=== PATIENT | male | born 1980 | race Caucasian/White ===

== ENCOUNTER 2017-05-29 08:06 | Emergency (ER) | payer OTHER ==
[2017-05-29 08:12] VITALS: RESP 16
[2017-05-29] MEDS ORDERED: MORPHINE SULFATE/PF 10MG/10ML VL IVP STA ×2 (09:04→11:41)
[2017-05-29] MEDS ORDERED: KETOROLAC 30 MG/ML 1 ML VIAL IVP STA (09:04)
[2017-05-29] MEDS ORDERED: SODIUM CHLORIDE 0.9% 1,000 ML IV STA (09:04)
[2017-05-29] MEDS ORDERED: ONDANSETRON 4 MG/2 ML VIAL IVP STA (09:04)
[2017-05-29 09:22] LABS: Basophils # (A) 0.1 k/uL (0-0.2); Basophils % (A) 1 %; Eosinophils # (A) 0.4 k/uL (0-0.7); Eosinophils % (A) 4 %; HGB 14.7 gm/dL (13.0-17.5); Lymphocytes # (A) 2.3 k/uL (1.0-4.8); Lymphocytes % (A) 24 %; MCHC 34.1 g/dL (31.0-37.0); MCV 87.9 fL (80.0-100.0); Mean Platelet Volume 6.6; Monocytes # (A) 0.5 k/uL (0-1.0); Monocytes % (A) 5 %; Neutrophils # (A) 6.3 k/uL (1.3-7.7); Neutrophils % (A) 65 %; Platelet Count 284 k/uL (150-450); RBC 4.89 m/uL (4.30-5.90); WBC 9.7 k/uL (3.8-10.6)
[2017-05-29 09:38] LABS: ALT 29 U/L (21-72); AST 26 U/L (17-59); Albumin 4.2 g/dL (3.5-5.0); Alkaline Phosphatase 53 U/L (38-126); Amylase 56 U/L (30-110); Anion Gap 10 mmol/L; Blood Urea Nitrogen 12 mg/dL (9-20); Calcium 9.6 mg/dL (8.4-10.2); Carbon Dioxide 28 mmol/L (22-30); Chloride 104 mmol/L (98-107); Glucose 90 mg/dL (74-99); Lipase 84 U/L (23-300); Potassium 4.5 mmol/L (3.5-5.1); Sodium 142 mmol/L (137-145); Total Bilirubin 0.8 mg/dL (0.2-1.3)
--- NOTE | 2017-05-29 09:51 | XR ---
EXAMINATION TYPE: XR KUB DATE OF EXAM: 05/29/2017 9:45 AM CLINICAL HISTORY: Abdominal pain for 5 days. TECHNIQUE: Two Upright KUB images of the abdomen are obtained. COMPARISON: None. FINDINGS: Scattered gas is seen in non-distended stomach and small bowel loops. Gas and fecal materia l is seen in non-distended colon. There is no visceromegaly, pneumoperitoneum, or abnormal calcificat ion appreciated. The lung bases are clear and the osseous structures are intact. Right sided pelvic p hlebolith. IMPRESSION: Overall nonobstructive bowel gas pattern.
[2017-05-29] MEDS ORDERED: MECLIZINE 12.5 MG TAB PO STA (10:04)
[2017-05-29 10:06] LABS: Appearance,Urine Clear (Clear); Bilirubin,Urine Negative (Negative); Blood,Urine Negative (Negative); Color,Urine Yellow; Glucose,Urine (UA) Negative (Negative); Ketones,Urine Negative (Negative); Leukocyte Esterase,Urine Negative (Negative); Mucus,Urine Many /hpf; Nitrite,Urine Negative (Negative); PH, Urine 5.5 (5.0-8.0); Protein,Urine 1+ (Negative); RBC,Urine <1 /hpf (0-5); Specific Gravity,Urine 1.024 (1.001-1.035); Urobilinogen,Urine <2.0 mg/dL (<2.0); WBC,Urine 1 /hpf (0-5)
[2017-05-29] MEDS ORDERED: SODIUM CHLORIDE 0.9% 1,000 ML IV SCH (10:15)
--- NOTE | 2017-05-29 10:34 | US ---
EXAMINATION TYPE: US abd limited kidneys/bladder DATE OF EXAM: 05/29/2017 COMPARISON: NONE CLINICAL HISTORY: Abdominal Pain x5 days. Difficult exam due to patient's pain EXAM MEASUREMENTS: Liver Length: 18.9 cm Gallbladder Wall: 0.2 cm CBD: 0.6 cm Right Kidney: 10.9 x 3.9 x 5.9 cm Left Kidney: 10.5 x 4.5 x 5.5 cm Pancreas: Obscured by bowel gas. Duct visualized measuring 0.27 cm Liver: Enlarged, heterogeneous Gallbladder: wnl CBD: wnl Right Kidney: No hydronephrosis or masses seen Left Kidney: No hydronephrosis or masses seen Bladder: wnl Bilateral Jets Seen Yes Exam suboptimal due to patient being difficult to image due to pain per technologist. Visualized panc reas is within normal limits. Pancreatic duct is visualized but is upper limits of normal in size. Vi sualized liver is slightly heterogeneous in appearance without evidence of worrisome intrahepatic mas s or hepatic ductal dilatation. Gallbladder is slightly distended margins but there are no suspicious mobile intraluminal gallstones. No pericholecystic fluid collection or abnormal gallbladder wall thi ckening is seen. Both kidneys show no hydronephrosis or concerning mass. Bladder shows no suspicious wall thickening or intraluminal mass. IMPRESSION: Slightly suboptimal study without significant finding seen to account for patient's sympt oms.
--- NOTE | 2017-05-29 10:49 | ED ---
Abdominal Pain HPI - General Chief Complaint: Abdominal Pain Stated Complaint: Abdominal pain Time Seen by Provider: 05/29/17 08:22 Source: patient, RN notes reviewed, old records reviewed Mode of arrival: ambulatory Limitations: no limitations - History of Present Illness Initial Comments: This patient is a 36-year-old male present emergency department with one week of right upper quadrant abdominal pain. He reports that he's had the symptoms for the past 4 days to be come worse. No vomiting but feels nauseated. He denies any fever or chills. He reports that he has pain when he takes the deep breath and this is diaphragm present on his lower abdomen. He states that he's had normal urination in bowel habits. He reports no other symptoms at this time including chest pain or shortness of breath. - Related Data Previous Rx's Medication Instructions Recorded Omeprazole [PriLOSEC] 40 mg PO HS #30 capsule. 05/29/17 Allergies Allergy/AdvReac Type Severity Reaction Status Date / Time Penicillins Allergy Anaphylaxis Verified 05/29/17 08:28 Review of Systems ROS Statement: Those systems with pertinent positive or pertinent negative responses have been documented in the HPI. ROS Other: All systems not noted in ROS Statement are negative. Past Medical History Past Medical History: No Reported History History of Any Multi-Drug Resistant Organisms: None Reported Past Surgical History: Appendectomy, Orthopedic Surgery, Tonsillectomy Past Psychological History: Depression Smoking Status: Current every day smoker Past Alcohol Use History: Occasional Past Drug Use History: None Reported General Exam - General Exam Comments Initial Comments: This is a well appearing 36 year old male, no distress Limitations: no limitations General appearance: alert, in no apparent distress Head exam: Present: atraumatic, normocephalic, normal inspection Eye exam: Present: normal appearance, PERRL, EOMI. Absent: scleral icterus, conjunctival injection, periorbital swelling ENT exam: Present: normal exam, mucous membranes moist Neck exam: Present: normal inspection. Absent: tenderness, meningismus, lymphadenopathy Respiratory exam: Present: normal lung sounds bilaterally. Absent: respiratory distress, wheezes, rales, rhonchi, stridor Cardiovascular Exam: Present: regular rate, normal rhythm, normal heart sounds. Absent: systolic murmur, diastolic murmur, rubs, gallop, clicks GI/Abdominal exam: Present: soft, tenderness (RUQ tenderness), normal bowel sounds. Absent: distended, guarding, rebound, rigid Extremities exam: Present: normal inspection, full ROM, normal capillary refill. Absent: tenderness, pedal edema, joint swelling, calf tenderness Back exam: Present: normal inspection Neurological exam: Present: alert, oriented X3, CN II-XII intact Psychiatric exam: Present: normal affect, normal mood Skin exam: Present: warm, dry, intact, normal color. Absent: rash Course Vital Signs 05/29/17 05/29/17 05/29/17 08:08 11:22 12:17 Temperature 98.2 F 98 F 98.7 F Pulse Rate 85 57 L 59 L Respiratory 16 16 16 Rate Blood Pressure 115/71 110/74 117/76 O2 Sat by Pulse 100 99 100 Oximetry 05/29/17 13:25 Temperature Pulse Rate 64 Respiratory 16 Rate Blood Pressure 120/80 O2 Sat by Pulse 100 Oximetry Medical Decision Making - Medical Decision Making This patient is a 36-year-old male present emergency department with one week of right upper quadrant abdominal pain. He reports that he's had the symptoms for the past 4 days to be come worse. No vomiting but feels nauseated. When I saw the patient urine, it was extremely dark. He had some tenderess to epigastric region adn RUQ. HE was also tender on right CVA. PAtient labs were reviewed and normal. UA shows no blood or bilirubin. US preformed of gallbladder , kidneys. No acute process identified. Patient still continued to complain of pain and tenderness, total CK was normal, no signs of rhabdo. Patient CT abdomen and pelvis was preformed and shows evidence of gastritis. Patient will be placed on omeprazole daily and informed of diet changes. Patient advised to follow up with PCP and return parameters discussed. - Lab Data Result diagrams: 05/29/17 09:12 05/29/17 09:12 Lab Results 05/29/17 05/29/17 05/29/17 Range/Units 09:00 09:12 09:12 WBC 9.7 (3.8-10.6) k/uL RBC 4.89 (4.30-5.90) m/uL Hgb 14.7 (13.0-17.5) gm/dL Hct 43.0 (39.0-53.0) % MCV 87.9 (80.0-100.0) fL MCH 30.0 (25.0-35.0) pg MCHC 34.1 (31.0-37.0) g/dL RDW 12.0 (11.5-15.5) % Plt Count 284 (150-450) k/uL Neutrophils % 65 % Lymphocytes % 24 % Monocytes % 5 % Eosinophils % 4 % Basophils % 1 % Neutrophils # 6.3 (1.3-7.7) k/uL Lymphocytes # 2.3 (1.0-4.8) k/uL Monocytes # 0.5 (0-1.0) k/uL Eosinophils # 0.4 (0-0.7) k/uL Basophils # 0.1 (0-0.2) k/uL Sodium 142 (137-145) mmol/L Potassium 4.5 (3.5-5.1) mmol/L Chloride 104 (98-107) mmol/L Carbon Dioxide 28 (22-30) mmol/L Anion Gap 10 mmol/L BUN 12 (9-20) mg/dL Creatinine 0.67 (0.66-1.25) mg/dL Est GFR (CKD-EPI)AfAm >90 (>60 ml/min/1.73 sqM) Est GFR (CKD-EPI)NonAf >90 (>60 ml/min/1.73 sqM) Glucose 90 (74-99) mg/dL Calcium 9.6 (8.4-10.2) mg/dL Total Bilirubin 0.8 (0.2-1.3) mg/dL AST 26 (17-59) U/L ALT 29 (21-72) U/L Alkaline Phosphatase 53 (38-126) U/L Creatine Kinase (55-170) U/L Total Protein 7.0 (6.3-8.2) g/dL Albumin 4.2 (3.5-5.0) g/dL Amylase 56 (30-110) U/L Lipase 84 (23-300) U/L Urine Color Yellow Urine Appearance Clear (Clear) Urine pH 5.5 (5.0-8.0) Ur Specific [place] 1.024 (1.001-1.035) Urine Protein 1+ H (Negative) Urine Glucose (UA) Negative (Negative) Urine Ketones Negative (Negative) Urine Blood Negative (Negative) Urine Nitrite Negative (Negative) Urine Bilirubin Negative (Negative) Urine Urobilinogen <2.0 (<2.0) mg/dL Ur Leukocyte Esterase Negative (Negative) Urine RBC <1 (0-5) /hpf Urine WBC 1 (0-5) /hpf Urine Mucus Many H (None) /hpf 05/29/17 Range/Units 09:12 WBC (3.8-10.6) k/uL RBC (4.30-5.90) m/uL Hgb (13.0-17.5) gm/dL Hct (39.0-53.0) % MCV (80.0-100.0) fL MCH (25.0-35.0) pg MCHC (31.0-37.0) g/dL RDW (11.5-15.5) % Plt Count (150-450) k/uL Neutrophils % % Lymphocytes % % Monocytes % % Eosinophils % % Basophils % % Neutrophils # (1.3-7.7) k/uL Lymphocytes # (1.0-4.8) k/uL Monocytes # (0-1.0) k/uL Eosinophils # (0-0.7) k/uL Basophils # (0-0.2) k/uL Sodium (137-145) mmol/L Potassium (3.5-5.1) mmol/L Chloride (98-107) mmol/L Carbon Dioxide (22-30) mmol/L Anion Gap mmol/L BUN (9-20) mg/dL Creatinine (0.66-1.25) mg/dL Est GFR (CKD-EPI)AfAm (>60 ml/min/1.73 sqM) Est GFR (CKD-EPI)NonAf (>60 ml/min/1.73 sqM) Glucose (74-99) mg/dL Calcium (8.4-10.2) mg/dL Total Bilirubin (0.2-1.3) mg/dL AST (17-59) U/L ALT (21-72) U/L Alkaline Phosphatase (38-126) U/L Creatine Kinase 179 H (55-170) U/L Total Protein (6.3-8.2) g/dL Albumin (3.5-5.0) g/dL Amylase (30-110) U/L Lipase (23-300) U/L Urine Color Urine Appearance (Clear) Urine pH (5.0-8.0) Ur Specific [place] (1.001-1.035) Urine Protein (Negative) Urine Glucose (UA) (Negative) Urine Ketones (Negative) Urine Blood (Negative) Urine Nitrite (Negative) Urine Bilirubin (Negative) Urine Urobilinogen (<2.0) mg/dL Ur Leukocyte Esterase (Negative) Urine RBC (0-5) /hpf Urine WBC (0-5) /hpf Urine Mucus (None) /hpf - Radiology Data Radiology results: report reviewed US gallbladder, renals and bladder shows no acute changes. CT shows mucosal hyperemia and thickening at focal wall at the gastric antrum. Finding suggest focal gastritis or peptic ulcer disease. Small amount of pelvic free food nonspecific but not normal in a male patient. A paddle megaly. Some bony changes at hips can been seen at the setting of the femoral l acetabular impingement syndrome. Disposition Clinical Impression: Acute gastritis Disposition: HOME SELF-CARE Condition: Good Instructions: Gastritis (ED), Diet for Stomach Ulcers and Gastritis (ED) Additional Instructions: Patient is to rest, have a clear liquid diet for the next 2 days. Follow-up with primary care provider. Return to the emergency department if any alarming signs or symptoms occur. Prescriptions: Omeprazole [PriLOSEC] 40 mg PO HS #30 capsule. Referrals: None,Stated [Primary Care Provider] - 1-2 days Sara Olivares MD [STAFF PHYSICIAN] - 1-2 days Time of Disposition: 12:57
[2017-05-29] MEDS ORDERED: RX INFO: IV CONTRAST WAS GIVEN 1 EACH MISC MISCELLANE PRN (11:41)
[2017-05-29 12:18] VITALS: TEMP 98.7
--- NOTE | 2017-05-29 12:39 | CT ---
EXAMINATION TYPE: CT abdomen pelvis w con DATE OF EXAM: 05/29/2017 COMPARISON: NONE HISTORY: 36-year-old male Middle abdominal pain x5 days TECHNIQUE: Contiguous axial scanning of the abdomen and pelvis following administration of 100 ml Omn ipaque 300 IV contrast. Delayed images through the kidneys and coronal/sagittal reconstructions perf ormed. CT DLP: 371.2 mGycm Automated exposure control for dose reduction was used. FINDINGS: The heart is normal size without pericardial effusion. Lung bases clear without pleural effusion. Liver enlarged measuring 20.6 cm craniocaudal. No focal liver lesions seen. Portal venous system is p atent when correlated with the delayed kidney images. Gallbladder, adrenal glands, spleen, and pancreas appear within normal limits. Symmetric uptake and excretion of contrast from both kidneys with an extrarenal pelvis on the left. There is suggestion of mucosal hyperemia and some circumferential wall thickening of the gastric antr um, refer to axial image 32, coronal image 22 and sagittal image 59. No mesenteric or retroperitoneal lymphadenopathy identified. Surgical material at the inferior cecum compatible with prior appendectomy. Scattered mild stool. No pericolonic inflammatory change. Bladder urine distended. Small amount of pelvic free fluid is noted, axial image 67. No dilated small bowel or free air. Bones: Suggestion of CAM deformities at the femoral head neck junctions and some superior acetabular retroversion. Mild degenerative disc disease at L5-S1. No osseous destructive process. IMPRESSION: 1. MUCOSAL HYPEREMIA AND FOCAL WALL THICKENING AT THE GASTRIC ANTRUM. FINDINGS SUGGEST FOCAL GASTRITI S OR PEPTIC ULCER DISEASE. NO EVIDENCE FOR PERFORATION. DIRECT VISUALIZATION CLINICALLY INDICATED. 2. A SMALL AMOUNT OF PELVIC FREE FLUID IS NONSPECIFIC BUT NOT NORMAL IN A MALE PATIENT. 3. HEPATOMEGALY (20.6 CM). 4. SOME BONY CHANGES AT THE HIPS CAN BE SEEN IN THE SETTING OF FEMORAL ACETABULAR IMPINGEMENT SYNDROM E.
[2017-05-29 13:27] VITALS: BP 120/80; PULSE 64
== END 2017-05-29 13:27 | disposition home or self-care (01) ==
LOC: EC 08:06
DX: K29.00 Acute gastritis without bleeding (principal); F17.200 Nicotine dependence, unspecified, uncomplicated; Z90.49 Acquired absence of other specified parts of digestive tract; Z88.0 Allergy status to penicillin
CPT/HCPCS: 36415; 74018; 74177; 76705; 76770; 80053; 81001; 82150; 82550; 83690; 85025; 96361; 96374; 96375; 96376; 99285

== ENCOUNTER 2017-12-21 08:13 | Inpatient (IN) | payer OTHER ==
[2017-12-21] MEDS ORDERED: KETOROLAC 30 MG/ML 1 ML VIAL IVP STA (08:35)
[2017-12-21] MEDS ORDERED: ONDANSETRON 4 MG/2 ML VIAL IVP STA (08:35)
[2017-12-21] MEDS ORDERED: SODIUM CHLORIDE 0.9% 1,000 ML IV STA (08:35)
--- NOTE | 2017-12-21 08:39 | ED ---
Abdominal Pain HPI <Jose Ramon Landry - Last Filed: 12/21/17 09:58> - General Source: patient, RN notes reviewed Mode of arrival: ambulatory Limitations: no limitations <Kendrick Vega - Last Filed: 12/21/17 10:23> - General Chief Complaint: Abdominal Pain Stated Complaint: Abd Pain Time Seen by Provider: 12/21/17 08:28 - History of Present Illness Initial Comments: 37-year-old male presents emergency Department chief complaint of abdominal pain. He's had worsening pain over the last 4 days. Patient states since epigastric and right upper quadrant. States nonradiating pain denies any back pain, chest pain, shortness breath. He admits to some nausea no vomiting no diarrhea no constipation has no dysuria no hematuria. Patient had a prior appendectomy no other abdominal surgeries. He denies any history of pancreatitis or any known liver disease. Patient had no fever no chills. Nothing makes the pain feel better but states is worsened by eating. (Kendrick Vega) - Related Data Home Medications Medication Instructions Recorded Confirmed No Known Home Medications 12/21/17 12/21/17 Allergies Allergy/AdvReac Type Severity Reaction Status Date / Time Penicillins Allergy Anaphylaxis Verified 12/21/17 09:26 Review of Systems ROS Other: All systems not noted in ROS Statement are negative. <FrantzJose Ramon - Last Filed: 12/21/17 09:58> ROS Other: All systems not noted in ROS Statement are negative. <Kendrick Vega - Last Filed: 12/21/17 10:23> ROS Statement: Those systems with pertinent positive or pertinent negative responses have been documented in the HPI. Past Medical History Past Medical History: No Reported History History of Any Multi-Drug Resistant Organisms: None Reported Past Surgical History: Appendectomy, Orthopedic Surgery, Tonsillectomy Past Psychological History: Depression Smoking Status: Current some day smoker Past Alcohol Use History: Rare Past Drug Use History: None Reported <Kendrick Vega - Last Filed: 12/21/17 10:23> General Exam Limitations: no limitations General appearance: alert, in no apparent distress Head exam: Present: atraumatic, normocephalic, normal inspection Respiratory exam: Present: normal lung sounds bilaterally. Absent: respiratory distress, wheezes, rales, rhonchi, stridor Cardiovascular Exam: Present: regular rate, normal rhythm, normal heart sounds. Absent: systolic murmur, diastolic murmur, rubs, gallop, clicks GI/Abdominal exam: Present: soft, tenderness (Moderate epigastric and right upper quadrant tenderness), normal bowel sounds. Absent: distended, guarding, rebound, rigid Back exam: Absent: CVA tenderness (R), CVA tenderness (L) Skin exam: Present: warm, dry, intact, normal color. Absent: rash <Kendrick Vega - Last Filed: 12/21/17 10:23> Course <Jose Ramon Landry - Last Filed: 12/21/17 09:58> <Kendrick Vega - Last Filed: 12/21/17 10:23> Vital Signs 12/21/17 12/21/17 12/21/17 08:14 09:00 09:30 Temperature 97.7 F Pulse Rate 68 77 68 Respiratory 18 18 18 Rate Blood Pressure 129/88 116/81 117/75 O2 Sat by Pulse 100 98 99 Oximetry 12/21/17 10:00 Temperature Pulse Rate 67 Respiratory 18 Rate Blood Pressure 124/76 O2 Sat by Pulse 100 Oximetry - Reevaluation(s) Reevaluation #1: 12/21/17 09:58 PA supervision: I did personally do a [id number] evaluation the patient patient does demonstrate epigastric and right upper quadrant tenderness palpation. He's had pain for 4 days. Ultrasound does show evidence of acute cholecystitis. I did discuss the case with Dr. Bennett the patient be admitted. I do agree with the assessment and plan. (Jose Ramon Landry) Medical Decision Making - Lab Data Result diagrams: 12/21/17 08:36 12/21/17 08:36 <Jose Ramon Landry - Last Filed: 12/21/17 09:58> - Lab Data Result diagrams: 12/21/17 08:36 12/21/17 08:36 <Kendrick Vega - Last Filed: 12/21/17 10:23> - Lab Data Lab Results 12/21/17 12/21/17 12/21/17 Range/Units 08:35 08:36 08:36 WBC 9.5 (3.8-10.6) k/uL RBC 4.90 (4.30-5.90) m/uL Hgb 14.9 (13.0-17.5) gm/dL Hct 44.1 (39.0-53.0) % MCV 90.1 (80.0-100.0) fL MCH 30.4 (25.0-35.0) pg MCHC 33.7 (31.0-37.0) g/dL RDW 12.3 (11.5-15.5) % Plt Count 273 (150-450) k/uL Neutrophils % 63 % Lymphocytes % 25 % Monocytes % 5 % Eosinophils % 5 % Basophils % 0 % Neutrophils # 6.0 (1.3-7.7) k/uL Lymphocytes # 2.4 (1.0-4.8) k/uL Monocytes # 0.5 (0-1.0) k/uL Eosinophils # 0.4 (0-0.7) k/uL Basophils # 0.0 (0-0.2) k/uL PT (9.0-12.0) sec INR (<1.2) APTT (22.0-30.0) sec Sodium 142 (137-145) mmol/L Potassium 4.5 (3.5-5.1) mmol/L Chloride 108 H (98-107) mmol/L Carbon Dioxide 26 (22-30) mmol/L Anion Gap 8 mmol/L BUN 11 (9-20) mg/dL Creatinine 0.67 (0.66-1.25) mg/dL Est GFR (CKD-EPI)AfAm >90 (>60 ml/min/1.73 sqM) Est GFR (CKD-EPI)NonAf >90 (>60 ml/min/1.73 sqM) Glucose 93 (74-99) mg/dL Calcium 9.7 (8.4-10.2) mg/dL Total Bilirubin 0.7 (0.2-1.3) mg/dL AST 37 (17-59) U/L ALT 30 (21-72) U/L Alkaline Phosphatase 41 (38-126) U/L Total Protein 6.9 (6.3-8.2) g/dL Albumin 4.0 (3.5-5.0) g/dL Amylase 113 H (30-110) U/L Lipase 360 H (23-300) U/L Urine Color Light Yellow Urine Appearance Clear (Clear) Urine pH 8.0 (5.0-8.0) Ur Specific [place] 1.008 (1.001-1.035) Urine Protein Negative (Negative) Urine Glucose (UA) Negative (Negative) Urine Ketones Negative (Negative) Urine Blood Negative (Negative) Urine Nitrite Negative (Negative) Urine Bilirubin Negative (Negative) Urine Urobilinogen <2.0 (<2.0) mg/dL Ur Leukocyte Esterase Negative (Negative) 12/21/17 Range/Units 08:36 WBC (3.8-10.6) k/uL RBC (4.30-5.90) m/uL Hgb (13.0-17.5) gm/dL Hct (39.0-53.0) % MCV (80.0-100.0) fL MCH (25.0-35.0) pg MCHC (31.0-37.0) g/dL RDW (11.5-15.5) % Plt Count (150-450) k/uL Neutrophils % % Lymphocytes % % Monocytes % % Eosinophils % % Basophils % % Neutrophils # (1.3-7.7) k/uL Lymphocytes # (1.0-4.8) k/uL Monocytes # (0-1.0) k/uL Eosinophils # (0-0.7) k/uL Basophils # (0-0.2) k/uL PT 9.7 (9.0-12.0) sec INR 1.0 (<1.2) APTT 25.5 (22.0-30.0) sec Sodium (137-145) mmol/L Potassium (3.5-5.1) mmol/L Chloride (98-107) mmol/L Carbon Dioxide (22-30) mmol/L Anion Gap mmol/L BUN (9-20) mg/dL Creatinine (0.66-1.25) mg/dL Est GFR (CKD-EPI)AfAm (>60 ml/min/1.73 sqM) Est GFR (CKD-EPI)NonAf (>60 ml/min/1.73 sqM) Glucose (74-99) mg/dL Calcium (8.4-10.2) mg/dL Total Bilirubin (0.2-1.3) mg/dL AST (17-59) U/L ALT (21-72) U/L Alkaline Phosphatase (38-126) U/L Total Protein (6.3-8.2) g/dL Albumin (3.5-5.0) g/dL Amylase (30-110) U/L Lipase (23-300) U/L Urine Color Urine Appearance (Clear) Urine pH (5.0-8.0) Ur Specific [place] (1.001-1.035) Urine Protein (Negative) Urine Glucose (UA) (Negative) Urine Ketones (Negative) Urine Blood (Negative) Urine Nitrite (Negative) Urine Bilirubin (Negative) Urine Urobilinogen (<2.0) mg/dL Ur Leukocyte Esterase (Negative) Disposition <Jose Ramon Landry - Last Filed: 12/21/17 09:58> <Kendrick Vega - Last Filed: 12/21/17 10:23> Clinical Impression: Acute cholecystitis Disposition: ADMITTED IP TO THIS HOSP Condition: Stable Referrals: None,Stated [Primary Care Provider] - 1-2 days
[2017-12-21 08:51] LABS: Basophils % (A) 0 %; Eosinophils # (A) 0.4 k/uL (0-0.7); Eosinophils % (A) 5 %; HCT 44.1 % (39.0-53.0); HGB 14.9 gm/dL (13.0-17.5); Lymphocytes # (A) 2.4 k/uL (1.0-4.8); Lymphocytes % (A) 25 %; MCH 30.4 pg (25.0-35.0); MCHC 33.7 g/dL (31.0-37.0); MCV 90.1 fL (80.0-100.0); Mean Platelet Volume 6.9; Monocytes # (A) 0.5 k/uL (0-1.0); Monocytes % (A) 5 %; Neutrophils % (A) 63 %; Platelet Count 273 k/uL (150-450); RDW 12.3 % (11.5-15.5); WBC 9.5 k/uL (3.8-10.6)
[2017-12-21 08:51] LABS: Appearance,Urine Clear (Clear); Bilirubin,Urine Negative (Negative); Blood,Urine Negative (Negative); Color,Urine Light Yellow; Glucose,Urine (UA) Negative (Negative); Ketones,Urine Negative (Negative); Leukocyte Esterase,Urine Negative (Negative); Nitrite,Urine Negative (Negative); Protein,Urine Negative (Negative); Specific Gravity,Urine 1.008 (1.001-1.035); Urobilinogen,Urine <2.0 mg/dL (<2.0)
[2017-12-21 09:02] LABS: Partial Thromboplastin Time 25.5 sec (22.0-30.0); Prothrombin Time 9.7 sec (9.0-12.0)
[2017-12-21 09:07] LABS: Amylase 113 U/L (30-110); Anion Gap 8 mmol/L; Blood Urea Nitrogen 11 mg/dL (9-20); Calcium 9.7 mg/dL (8.4-10.2); Carbon Dioxide 26 mmol/L (22-30); Chloride 108 mmol/L (98-107); Glucose 93 mg/dL (74-99); Lipase 360 U/L (23-300); Sodium 142 mmol/L (137-145); Total Bilirubin 0.7 mg/dL (0.2-1.3); Total Protein 6.9 g/dL (6.3-8.2)
[2017-12-21 09:20] LABS: ALT 30 U/L (21-72); AST 37 U/L (17-59); Alkaline Phosphatase 41 U/L (38-126); Potassium 4.5 mmol/L (3.5-5.1)
--- NOTE | 2017-12-21 09:23 | US ---
EXAMINATION TYPE: US gallbladder DATE OF EXAM: 12/21/2017 COMPARISON: Previous study dated 05/29/2017. CLINICAL HISTORY: Pain. RUQ pain EXAM MEASUREMENTS: Liver Length: 14.6 cm Gallbladder Wall: 0.2 cm CBD: 0.4 cm Right Kidney: 11.4 x 4.0 x 5.5 cm Pancreas: visualized portions wnl Liver: wnl Gallbladder: No stones seen, appears distended at 9.8 cm. Evidence for sonographic Fry's sign: Yes CBD: wnl Right Kidney: No hydronephrosis or masses seen Visualized portions of the pancreas are unremarkable. The liver is normal in size without biliary dilatation. The gallbladder is mildly distended but contains no calculi. The gallbladder wall measures 2 mm. This common hepatic duct measures 4 mm. There is a positive sonographic Fry's sign. The right kidney is unremarkable. IMPRESSION: SLIGHTLY DISTENDED GALLBLADDER WITH A POSITIVE SONOGRAPHIC FRY'S SIGN MAY REFLECT ACALCULOUS FRANKIE CYSTITIS.
[2017-12-21] MEDS ORDERED: HYDROmorphone 1 MG/ML 1 ML SYRINGE IVP STA (10:14)
[2017-12-21] MEDS ORDERED: NALOXONE 0.4 MG/ML 1 ML VIAL IV PRN (10:23)
[2017-12-21] MEDS ORDERED: ONDANSETRON 4 MG/2 ML VIAL IVP PRN (10:23)
[2017-12-21] MEDS ORDERED: LEVOFLOXACIN 750MG-D5W PMX 750 MG in DEXTROSE/WATER 1 150ML.BAG IVPB STA (10:27)
[2017-12-21] MEDS ORDERED: metroNIDAZOLE-NS PMX 500 MG in SALINE 1 100ML.BAG IVPB STA (10:29)
--- NOTE | 2017-12-21 10:50 | P.GSHP ---
History of Present Illness H&P Date: 12/21/17 Chief Complaint: Epigastric and right upper quadrant pain The patient is a 37-year-old white male who gives about a history of pain in the epigastrium and right upper quadrant area. Had a similar episode several months ago but the workup was negative in the emergency room at that time. Has had some nausea but no vomiting. No history of significant alcohol intake recently. Rarely drinks alcohol he states. Ultrasound today revealed a slightly distended gallbladder but no thickening of the wall. No stones were noted. No dilatation of his common bile duct. Amylase and lipase were mildly elevated. Past history. Positive for open appendectomy and the ORIF of the right has a history of depression. Otherwise fairly healthy. No cardiac or respiratory problems. ALLERGIES. Penicillin. Social history rarely drinks alcohol none recently. Nonsmoker. Family history. Noncontributory. On examination patient is well-built well-nourished in no acute distress. Resting comfortably. Vitals are stable and normal. He is anicteric. Head and neck are normal. Heart regular rhythm. Lungs are clear. Abdomen is fairly soft with mild to moderate tenderness in the right upper quadrant. No guarding or rebound. No masses or organomegaly. Well-healed scar in the right lower quadrant. No hernias are noted. Extremities normal with full motion. Scar in the right forearm. [employer] grossly negative with no focal deficits. Laboratory studies. WBC is normal at 9700. Amylase is 113 lipase 630. Bilirubin and alk phos are normal. Urinalysis is unremarkable. Impression. Mild pancreatitis. Possible gallbladder disease. Recommendation. Patient will be admitted. Analgesia. Liquid diet. We'll obtain a HIDA scan. Monitor his amylase and lipase. Further management will depend on his clinical course. Past Medical History Past Medical History: No Reported History History of Any Multi-Drug Resistant Organisms: None Reported Past Surgical History: Appendectomy, Orthopedic Surgery, Tonsillectomy Past Psychological History: Depression Smoking Status: Current some day smoker Past Alcohol Use History: Rare Past Drug Use History: None Reported Medications and Allergies Home Medications Medication Instructions Recorded Confirmed Type No Known Home Medications 12/21/17 12/21/17 History Allergies Allergy/AdvReac Type Severity Reaction Status Date / Time Penicillins Allergy Anaphylaxis Verified 12/21/17 09:26 Surgical - Exam Vital Signs Temp Pulse Resp BP Pulse Ox 97.7 F 68 18 129/88 100 12/21/17 08:14 12/21/17 08:14 12/21/17 08:14 12/21/17 08:14 12/21/17 08:14 Results - Labs 12/21/17 08:36 12/21/17 08:36 Abnormal Lab Results - Last 24 Hours (Table) 12/21/17 Range/Units 08:36 Chloride 108 H (98-107) mmol/L Amylase 113 H (30-110) U/L Lipase 360 H (23-300) U/L Diabetes panel 12/21/17 Range/Units 08:36 Sodium 142 (137-145) mmol/L Potassium 4.5 (3.5-5.1) mmol/L Chloride 108 H (98-107) mmol/L Carbon Dioxide 26 (22-30) mmol/L BUN 11 (9-20) mg/dL Creatinine 0.67 (0.66-1.25) mg/dL Glucose 93 (74-99) mg/dL Calcium 9.7 (8.4-10.2) mg/dL AST 37 (17-59) U/L ALT 30 (21-72) U/L Alkaline Phosphatase 41 (38-126) U/L Total Protein 6.9 (6.3-8.2) g/dL Albumin 4.0 (3.5-5.0) g/dL Calcium panel 12/21/17 Range/Units 08:36 Calcium 9.7 (8.4-10.2) mg/dL Albumin 4.0 (3.5-5.0) g/dL Pituitary panel 12/21/17 Range/Units 08:36 Sodium 142 (137-145) mmol/L Potassium 4.5 (3.5-5.1) mmol/L Chloride 108 H (98-107) mmol/L Carbon Dioxide 26 (22-30) mmol/L BUN 11 (9-20) mg/dL Creatinine 0.67 (0.66-1.25) mg/dL Glucose 93 (74-99) mg/dL Calcium 9.7 (8.4-10.2) mg/dL Adrenal panel 12/21/17 Range/Units 08:36 Sodium 142 (137-145) mmol/L Potassium 4.5 (3.5-5.1) mmol/L Chloride 108 H (98-107) mmol/L Carbon Dioxide 26 (22-30) mmol/L BUN 11 (9-20) mg/dL Creatinine 0.67 (0.66-1.25) mg/dL Glucose 93 (74-99) mg/dL Calcium 9.7 (8.4-10.2) mg/dL Total Bilirubin 0.7 (0.2-1.3) mg/dL AST 37 (17-59) U/L ALT 30 (21-72) U/L Alkaline Phosphatase 41 (38-126) U/L Total Protein 6.9 (6.3-8.2) g/dL Albumin 4.0 (3.5-5.0) g/dL
[2017-12-21] MEDS: PANTOPRAZOLE 40 MG/10 ML VIAL IVP SCH (12:57)
[2017-12-21] MEDS: HYDROmorphone 1 MG/ML 1 ML SYRINGE IVP PRN ×2 (17:00→21:12)
--- NOTE | 2017-12-21 17:03 | NM ---
EXAMINATION TYPE: NM hepatobiliary w CCK DATE OF EXAM: 12/21/2017 COMPARISON: NONE HISTORY: Right upper quadrant pain TECHNIQUE: After the intravenous administration of 5.1 mCi Tc 99m Mebrofenin hepatobiliary scintigrap hy is performed. Immediate images post injection. FINDINGS: There is satisfactory initial accumulation of tracer by the liver. The gallbladder is visualized wit hin 10 minutes. At one hour CCK was administered, patient was injected with 1.3 mcg of Kinevac, and gallbladder ejection fraction is calculated at 79 %, in the normal range. Therefore there is no sci ntigraphic evidence of cystic or common bile duct obstruction to suggest acute cholecystitis or gallb ladder dyskinesia. No focal liver defect. IMPRESSION: Negative exam
[2017-12-21 17:13] VITALS: BMI 21.1
[2017-12-22] MEDS: PANTOPRAZOLE 40 MG/10 ML VIAL IVP SCH (07:38)
[2017-12-22] MEDS: HYDROmorphone 1 MG/ML 1 ML SYRINGE IVP PRN ×3 (08:09→20:09)
--- NOTE | 2017-12-22 08:44 | P.PN ---
Progress Note - Text Progress Note Date: 12/22/17 The patient continues to complain of right upper quadrant epigastric pain. In no acute distress otherwise. States is very very hungry. No nausea or vomiting. Ultrasound and HIDA scan were unremarkable. HIDA scan showed no cystic duct obstruction. Gallbladder function normally with a ejection fraction of 79%. Common bile duct was normal. On examination the patient is awake alert in no distress. Resting comfortably. Temperature is normal. Vitals are normal. Abdomen is soft with mild epigastric and especially right upper quadrant tenderness but no guarding or rebound or rigidity. No mass or organomegaly or hernias noted. Laboratory studies are pending especially his amylase and lipase. Impression mild to acute pancreatitis. Persistent right upper quadrant epigastric pain etiology undetermined. No evidence of gallbladder disease. Recommendation we will consult GI. Nothing surgical to offer.
[2017-12-22 11:32] LABS: Amylase 55 U/L (30-110); Lipase 70 U/L (23-300)
[2017-12-22 11:38] LABS: Basophils # (A) 0.1 k/uL (0-0.2); Basophils % (A) 1 %; Eosinophils # (A) 0.3 k/uL (0-0.7); Eosinophils % (A) 4 %; HCT 43.2 % (39.0-53.0); Lymphocytes # (A) 2.3 k/uL (1.0-4.8); Lymphocytes % (A) 27 %; MCHC 32.3 g/dL (31.0-37.0); MCV 92.7 fL (80.0-100.0); Monocytes # (A) 0.4 k/uL (0-1.0); Monocytes % (A) 5 %; Neutrophils # (A) 5.2 k/uL (1.3-7.7); Neutrophils % (A) 61 %; Platelet Count 285 k/uL (150-450); RBC 4.66 m/uL (4.30-5.90); RDW 12.2 % (11.5-15.5); WBC 8.5 k/uL (3.8-10.6)
[2017-12-22 22:48] VITALS: RESP 18
[2017-12-23 05:48] VITALS: BP 119/75; PULSE 75; TEMP 99.2
--- NOTE | 2017-12-23 07:59 | P.DS ---
Providers Date of admission: 12/21/17 09:58 Attending physician: Andrea Bennett Consults: 12/22/17 08:48 Consult Physician Routine Consulting Provider: Alexsander Casas Reason/Comments: pancreatitis, RUQ pain Do you want consulting provider notified?: Yes Primary care physician: Stated None Hospital Course: 37-year-old male was admitted with suspicion of acute cholecystitis by the emergency room physician. However, on workup studies for acute cholecystitis were negative. HIDA was negative for any cholecystitis. Lipase and amylase were elevated on admission and with hydration and slow advancement of diet, the patient did improve. He states that his abdominal pain has improved. He is tolerating a soft diet without any nausea or vomiting at this point. He is stable for discharge from a surgical standpoint. Pertinent Studies: Ultrasound of gallbladder with distended gallbladder. HIDA scan negative for any cholecystitis. Patient Condition at Discharge: Stable Plan - Discharge Summary Discharge Rx Participant: Yes New Discharge Prescriptions: New Omeprazole 20 mg PO DAILY #30 cap Discharge Medication List Omeprazole 20 mg PO DAILY #30 cap 12/23/17 [Rx] Follow up Appointment(s)/Referral(s): None,Stated [Primary Care Provider] - 1-2 days Bryan Corea DO [Doctor of Osteopathic Medicine] - 1 Week Activity/Diet/Wound Care/Special Instructions: Stay on soft diet Take omeprazole daily F/U for scheduling endoscopy Discharge Disposition: HOME SELF-CARE
[2017-12-23] MEDS: PANTOPRAZOLE 40 MG/10 ML VIAL IVP SCH (08:07)
[2017-12-23] MEDS: HYDROmorphone 1 MG/ML 1 ML SYRINGE IVP PRN (08:12)
== END 2017-12-23 10:44 | disposition home or self-care (01) | DRG 440 ==
LOC: EC 08:13 → 4MS4W 09:58
PROVIDERS: ADMIT Surgery; ATTEND Surgery
DX: K85.90 Acute pancreatitis without necrosis or infection, unspecified (principal); F17.200 Nicotine dependence, unspecified, uncomplicated; Z71.6 Tobacco abuse counseling; Z86.59 Personal history of other mental and behavioral disorders; Z90.49 Acquired absence of other specified parts of digestive tract; Z87.81 Personal history of (healed) traumatic fracture; Z88.0 Allergy status to penicillin
CPT/HCPCS: 36415; 76705; 78227; 80053; 81003; 82150; 83690; 85025; 85610; 85730; 96361; 96365; 96366; 96367; 96375; 99285

== ENCOUNTER 2017-12-31 00:15 | Emergency (ER) | payer OTHER ==
[2017-12-31 00:22] VITALS: TEMP 98.2
[2017-12-31] MEDS ORDERED: ONDANSETRON 4 MG/2 ML VIAL IVP STA (00:46)
[2017-12-31] MEDS ORDERED: MORPHINE SULFATE 4 MG/ML SYRINGE IV STA (00:46)
[2017-12-31] MEDS ORDERED: SODIUM CHLORIDE 0.9% 2,000 ML IV STA (00:46)
[2017-12-31 01:30] LABS: Appearance,Urine Clear (Clear); Bilirubin,Urine Negative (Negative); Blood,Urine Negative (Negative); Color,Urine Light Yellow; Glucose,Urine (UA) Negative (Negative); Ketones,Urine 1+ (Negative); Leukocyte Esterase,Urine Negative (Negative); Nitrite,Urine Negative (Negative); PH, Urine 7.5 (5.0-8.0); Protein,Urine Negative (Negative); Urobilinogen,Urine <2.0 mg/dL (<2.0)
--- NOTE | 2017-12-31 01:32 | ED ---
Abdominal Pain HPI - General Chief Complaint: Abdominal Pain Stated Complaint: abd pain Time Seen by Provider: 12/31/17 00:26 Source: patient Mode of arrival: ambulatory Limitations: no limitations - History of Present Illness Initial Comments: Connie is a 37-year-old male who presents to the emergency department today for evaluation of right upper quadrant and epigastric abdominal pain. Patient was evaluated for the similar complaint a couple of weeks ago, diagnosed with possibly acute cholecystitis on ultrasound, admitted to the hospital and observed by the surgeons, had a negative HIDA scan resolution of his pain and lab abnormalities and subsequently discharged home with a plan follow up with surgery. Patient reports that he was told to eat a bland diet. Patient reports that he felt well for a couple days after discharge but since that time has had intermittent right upper quadrant abdominal pain. Patient reports over the past 3 days the pain is been nearly constant. Patient reports he has tried to maintain a healthier diet eating primarily sandwiches of either peanut butter and jelly or ham and cheese with mayonnaise. Patient doesn't feel that the pain is related to eating, he reports the pain is nearly constant. He reports that this evening the pain became unbearable so he came to the ER for evaluation. Patient does state that he scheduled follow-up with general surgery tomorrow in office to schedule his outpatient for elective cholecystectomy. Has no known history of gastritis or ulcer disease. He's never been evaluated by GI. - Related Data Previous Rx's Medication Instructions Recorded Omeprazole 20 mg PO DAILY #30 cap 12/23/17 Allergies Allergy/AdvReac Type Severity Reaction Status Date / Time Penicillins Allergy Anaphylaxis Verified 12/31/17 00:21 Review of Systems ROS Statement: Those systems with pertinent positive or pertinent negative responses have been documented in the HPI. ROS Other: All systems not noted in ROS Statement are negative. Past Medical History Past Medical History: No Reported History History of Any Multi-Drug Resistant Organisms: None Reported Past Surgical History: Appendectomy, Orthopedic Surgery, Tonsillectomy Additional Past Surgical History / Comment(s): Steel plates in right forearm Past Anesthesia/Blood Transfusion Reactions: No Reported Reaction Past Psychological History: Depression Smoking Status: Current some day smoker Past Alcohol Use History: Occasional Past Drug Use History: None Reported General Exam - General Exam Comments Initial Comments: Physical Exam GENERAL: Patient is well-developed and well-nourished. Patient is nontoxic and well- hydrated and is in mild distress. HENT: Normocephalic, Atraumatic. EYES: PERRL, EOMI PULMONARY: Tachypneic but unlabored respirations No audible rales rhonchi or wheezing was noted. CARDIOVASCULAR: There is a regular rate and rhythm without any murmurs gallops or rubs. ABDOMEN: Soft with normal bowel sounds. Tenderness to palpation of the epigastrium and right upper quadrant though patient seems to be able to be distracted from the pain during history taking SKIN: Skin is clear with no lesions or rashes and otherwise unremarkable. : Deferred NEUROLOGIC: Patient is alert and oriented x3. Moving all extremities spontaneously MUSCULOSKELETAL: Normal extremities with adequate strength and full range of motion. No lower extremity swelling or edema. No calf tenderness. PSYCHIATRIC: Normal psychiatric evaluation. Limitations: no limitations Limitations: no limitations Course Vital Signs 12/31/17 12/31/17 00:18 01:44 Temperature 98.2 F Pulse Rate 102 H 92 Respiratory 28 H 20 Rate Blood Pressure 137/90 125/80 O2 Sat by Pulse 100 94 L Oximetry Medical Decision Making - Medical Decision Making The patient was seen and evaluated, history was obtained from the patient review of medical record Patient returning to the ER today with recurrent right upper quadrant abdominal pain, was seen previously diagnosed with acute cholecystitis, discharged home after his labs normalized his HIDA scan was negative, he was advised to make dietary changes and follow up outpatient. History and physical exam are concerning for gallbladder pathology, labs and imaging were ordered Labs were unremarkable Ultrasound revealed a normal gallbladder, no gallbladder distention, no pericholecystic fluid, no thickening of the gallbladder wall, no findings suggestive of acute cholecystitis I return to reevaluate the patient, upon standing outside the patient's room was noted that the patient was resting comfortably with his eyes closed. Upon waking the patient he began stating that he was in significant pain and became very tachypneic. Patient asking for pain medications. Advised the patient this time there is no acute findings that would warrant treatment with pain medications, I suspect his pain would be well managed with dietary modifications. The patient has been noncompliant with his dietary recommendations. He has been eating a high-fat greasy diet. I suspect that this is contribute eating somewhat to his symptoms. Again I had a conversation with the patient about a bland diet. Patient scheduled follow-up with surgery later today. All questions pertaining care were answered best my ability patient was discharged home in stable condition. - Lab Data Result diagrams: 12/31/17 01:15 12/31/17 01:15 Lab Results 12/31/17 12/31/17 12/31/17 Range/Units 01:15 01:15 01:15 WBC 9.6 (3.8-10.6) k/uL RBC 4.74 (4.30-5.90) m/uL Hgb 14.3 (13.0-17.5) gm/dL Hct 42.4 (39.0-53.0) % MCV 89.5 (80.0-100.0) fL MCH 30.1 (25.0-35.0) pg MCHC 33.6 (31.0-37.0) g/dL RDW 12.4 (11.5-15.5) % Plt Count 259 (150-450) k/uL Neutrophils % 74 % Lymphocytes % 16 % Monocytes % 5 % Eosinophils % 3 % Basophils % 1 % Neutrophils # 7.1 (1.3-7.7) k/uL Lymphocytes # 1.5 (1.0-4.8) k/uL Monocytes # 0.5 (0-1.0) k/uL Eosinophils # 0.3 (0-0.7) k/uL Basophils # 0.1 (0-0.2) k/uL Sodium 140 (137-145) mmol/L Potassium 3.6 (3.5-5.1) mmol/L Chloride 106 (98-107) mmol/L Carbon Dioxide 26 (22-30) mmol/L Anion Gap 8 mmol/L BUN 13 (9-20) mg/dL Creatinine 0.70 (0.66-1.25) mg/dL Est GFR (CKD-EPI)AfAm >90 (>60 ml/min/1.73 sqM) Est GFR (CKD-EPI)NonAf >90 (>60 ml/min/1.73 sqM) Glucose 83 (74-99) mg/dL Calcium 9.9 (8.4-10.2) mg/dL Total Bilirubin 0.5 (0.2-1.3) mg/dL AST 25 (17-59) U/L ALT 32 (21-72) U/L Alkaline Phosphatase 53 (38-126) U/L Total Protein 6.6 (6.3-8.2) g/dL Albumin 4.1 (3.5-5.0) g/dL Lipase 276 (23-300) U/L Urine Color Light Yellow Urine Appearance Clear (Clear) Urine pH 7.5 (5.0-8.0) Ur Specific [place] 1.010 (1.001-1.035) Urine Protein Negative (Negative) Urine Glucose (UA) Negative (Negative) Urine Ketones 1+ H (Negative) Urine Blood Negative (Negative) Urine Nitrite Negative (Negative) Urine Bilirubin Negative (Negative) Urine Urobilinogen <2.0 (<2.0) mg/dL Ur Leukocyte Esterase Negative (Negative) Disposition Clinical Impression: Abdominal pain Disposition: HOME SELF-CARE Instructions: Abdominal Pain (ED) Is patient prescribed a controlled substance at d/c from ED?: No Referrals: None,Stated [Primary Care Provider] - 1-2 days Wanda Sanchez MD [STAFF PHYSICIAN] - 1-2 days
[2017-12-31 01:41] LABS: ALT 32 U/L (21-72); AST 25 U/L (17-59); Albumin 4.1 g/dL (3.5-5.0); Alkaline Phosphatase 53 U/L (38-126); Anion Gap 8 mmol/L; Basophils # (A) 0.1 k/uL (0-0.2); Basophils % (A) 1 %; Blood Urea Nitrogen 13 mg/dL (9-20); Calcium 9.9 mg/dL (8.4-10.2); Carbon Dioxide 26 mmol/L (22-30); Chloride 106 mmol/L (98-107); Eosinophils # (A) 0.3 k/uL (0-0.7); Eosinophils % (A) 3 %; Glucose 83 mg/dL (74-99); HCT 42.4 % (39.0-53.0); HGB 14.3 gm/dL (13.0-17.5); Lipase 276 U/L (23-300); Lymphocytes # (A) 1.5 k/uL (1.0-4.8); Lymphocytes % (A) 16 %; MCH 30.1 pg (25.0-35.0); MCHC 33.6 g/dL (31.0-37.0); MCV 89.5 fL (80.0-100.0); Mean Platelet Volume 7.2; Monocytes # (A) 0.5 k/uL (0-1.0); Monocytes % (A) 5 %; Neutrophils # (A) 7.1 k/uL (1.3-7.7); Neutrophils % (A) 74 %; Platelet Count 259 k/uL (150-450); Potassium 3.6 mmol/L (3.5-5.1); RBC 4.74 m/uL (4.30-5.90); RDW 12.4 % (11.5-15.5); Sodium 140 mmol/L (137-145); Total Bilirubin 0.5 mg/dL (0.2-1.3); Total Protein 6.6 g/dL (6.3-8.2); WBC 9.6 k/uL (3.8-10.6)
[2017-12-31 01:45] VITALS: BP 125/80; PULSE 92; RESP 20
--- NOTE | 2017-12-31 01:45 | US ---
EXAM: US Abdomen Limited, Right Upper Quadrant CLINICAL HISTORY: Pain TECHNIQUE: Real-time ultrasound of the right upper quadrant with image documentation. COMPARISON: 12/21/17 FINDINGS: Liver: Measures about 19.1 cm in length. Differences and measurement from previous likely related to differences in technique. Inferior right hepatic lobe extends inferior to the right kidney as on prior. Query Bob lobe. Gallbladder: Unremarkable. No gallstones. Sonographic Fry's sign reported as negative. Common bile duct: Normal caliber as visualized. Pancreas: Unremarkable as visualized. Right kidney: Unremarkable. IMPRESSION: No evidence for cholecystitis or other sonographic explanation for patient's pain.
--- NOTE | 2018-01-01 01:42 | CDI ---
Documentation Clarification OP Dear Wilder Bettencourt, DO Please do addendum to ED report for missing Physical examination. Thank you, [employer] Superintendent If you have any questions, please contact [employer] at [phone] [facility]
== END 2017-12-31 02:10 | disposition home or self-care (01) ==
LOC: EC 00:15
DX: R10.11 Right upper quadrant pain (principal); R10.13 Epigastric pain; F17.200 Nicotine dependence, unspecified, uncomplicated; Z88.0 Allergy status to penicillin; Z90.89 Acquired absence of other organs
CPT/HCPCS: 99284; 96374; 96375; 96361; 36415; 80053; 83690; 85025; 81003; 87040; 76705; J2270; J2405

== ENCOUNTER 2018-12-24 17:05 | Emergency (ER) | payer OTHER ==
[2018-12-24 17:24] VITALS: BP 134/79; PULSE 100; RESP 20; TEMP 99.1
--- NOTE | 2018-12-24 18:19 | CT ---
EXAMINATION TYPE: CT brain ghada feldman DATE OF EXAM: 12/24/2018 COMPARISON: None HISTORY: Fall Headache. Neck pain CT DLP: 1239.6 mGycm Automated exposure control for dose reduction was used. TECHNIQUE: CT scan of the head and cervical spine are performed without contrast. FINDINGS: Ventricles and sulci appear normal. There is no mass effect nor midline shift. There is n o sign of intracranial hemorrhage. The calvarium is intact. Cervical vertebra have normal alignment. Posterior elements are intact and there is small posterior d isc herniation at C5-6 with calcification. There is no significant spinal stenosis. Skull base is int act. IMPRESSION: C5-6 posterior cervical disc herniation. No evidence of acute traumatic injury. Negative CT scan of the brain.
--- NOTE | 2018-12-24 18:52 | ED ---
Dizziness HPI - General Chief Complaint: Dizziness Stated Complaint: Double vision, depth preception off Time Seen by Provider: 12/24/18 17:25 Source: patient Mode of arrival: ambulatory Limitations: no limitations - History of Present Illness Initial Comments: Patient is a 38-year-old male with no significant past medical history is presenting to emergency Department with a chief complaint of dizziness. Patient reports about 2 months ago he fell off a roof but denies any loss of consciousness nausea vomiting. Patient reports a week after that he developed sleep disturbances and and difficulty concentration. Patient reports he has not been able to sleep since. Patient reports that he is tired throughout the day. Patient denies any patient does report interment headaches but nothing out of the ordinary. Patient denies any blurred vision, chest pain, shortness of breath, one-sided weakness or paresthesias. - Related Data Previous Rx's Medication Instructions Recorded Omeprazole 20 mg PO DAILY #30 cap 12/23/17 Allergies Allergy/AdvReac Type Severity Reaction Status Date / Time Penicillins Allergy Anaphylaxis Verified 12/24/18 17:23 Review of Systems ROS Statement: Those systems with pertinent positive or pertinent negative responses have been documented in the HPI. ROS Other: All systems not noted in ROS Statement are negative. Past Medical History Past Medical History: No Reported History History of Any Multi-Drug Resistant Organisms: None Reported Past Surgical History: Appendectomy, Orthopedic Surgery, Tonsillectomy Additional Past Surgical History / Comment(s): Steel plates in right forearm Past Anesthesia/Blood Transfusion Reactions: No Reported Reaction Past Psychological History: Depression Smoking Status: Current some day smoker Past Alcohol Use History: Occasional Past Drug Use History: Marijuana General Exam Limitations: no limitations General appearance: alert, in no apparent distress Head exam: Present: atraumatic, normocephalic, normal inspection Eye exam: Present: normal appearance, PERRL, EOMI Pupils: Present: normal accommodation ENT exam: Present: normal exam, normal oropharynx, mucous membranes moist, TM's normal bilaterally, normal external ear exam Neck exam: Present: normal inspection, full ROM. Absent: tenderness, lymphadenopathy Respiratory exam: Present: normal lung sounds bilaterally Cardiovascular Exam: Present: regular rate, normal rhythm, normal heart sounds Extremities exam: Present: normal inspection, full ROM, normal capillary refill Back exam: Present: normal inspection, full ROM Neurological exam: Present: alert, oriented X3, CN II-XII intact, normal gait Psychiatric exam: Present: normal affect, normal mood Skin exam: Present: warm, intact, normal color Course Vital Signs 12/24/18 12/24/18 17:21 17:23 Temperature 99.1 F Pulse Rate 100 Respiratory 20 20 Rate Blood Pressure 134/79 O2 Sat by Pulse 99 Oximetry Medical Decision Making - Medical Decision Making Patient is a 38-year-old male presenting to emergency Department with chief complaint of dizziness. Patient fell about 2 months ago and now appears to have continuous concussion type symptoms along with difficulty in concentration and sleep disturbances. I suspect the patient to have initially suffered a concussion when he fell from the roof. I believe now the patient has postconcussive syndrome. CT of the brain and C-spine is positive for a cervical disc herniation at C5 and C6 however patient is not complaining of any neck pain. Patient advised to follow-up with neurology for further management. Strict return parameters were thoroughly discussed with patient was understanding and agreeable. Case discussed with physician. Disposition Clinical Impression: Postconcussive syndrome, Herniation of intervertebral disc at C5-C6 level Disposition: HOME SELF-CARE Condition: Stable Instructions (If sedation given, give patient instructions): Dizziness (ED) Additional Instructions: Please follow up with neurology. Please return to emergency department if symptoms worsen. Is patient prescribed a controlled substance at d/c from ED?: No Referrals: None,Stated [Primary Care Provider] - 1-2 days Jaylen Hand MD [STAFF PHYSICIAN] - 1-2 days Time of Disposition: 18:52
== END 2018-12-24 19:01 | disposition home or self-care (01) ==
LOC: EC 17:05
DX: F07.81 Postconcussional syndrome (principal); M50.222 Other cervical disc displacement at C5-C6 level; G47.9 Sleep disorder, unspecified; F17.200 Nicotine dependence, unspecified, uncomplicated; Z88.0 Allergy status to penicillin
CPT/HCPCS: 70450; 72125; 99284

== ENCOUNTER → 2021-12-26 | Outpatient (CLI) | payer OTHER ==
--- NOTE | 2021-12-26 13:16 | US ---
EXAMINATION TYPE: US scrotum with doppler. Grayscale and color Doppler Duplex imaging performed of t he scrotum. 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 palpable area on lateral aspect of ri ght testicle since vasectomy in August EXAM MEASUREMENTS: TESTICLES: Right Testicle: 4.4 x 3.1 x 2.4 cm Left Testicle: 4.7 x 3.0 x 2.0 cm EPIDIDYMIS HEAD: Right Epididymis: 1.1 cm - adjacent palpable is heterogeneous well circumscribed lesion = 1.3 x 1.7 x 1.3cm Left Epididymis: 0.8cm cm Doppler performed to assess for testicular vascularity; good bilateral color flow and waveforms are s een. There is no evidence of testicular torsion. Presence of hydroceles: yes, bilaterally Presence of varicoceles: left IMPRESSION: 1. Well-circumscribed hypoechoic lesion adjacent to the right epididymis of the palpable abnormality. 2. Epididymides and testes appear normal. 3. Left side varicocele
== END | disposition home or self-care (01) ==
LOC: RADUSWWP 10:56
PROVIDERS: ATTEND Family Medicine
DX: D29.20 Benign neoplasm of unspecified testis (principal); I86.1 Scrotal varices
CPT/HCPCS: 76870; 93975